=== PATIENT | male | born 1955 | race Caucasian/White ===

== ENCOUNTER 2021-02-13 20:49 | Emergency (ER) | payer MEDICARE ==
[2021-02-13] MEDS ORDERED: Lidocaine 1% (PF) 30 ML VIAL ONE (21:18)
[2021-02-13] MEDS ORDERED: Morphine 4 MG/ML VIAL ONE (21:52)
== END 2021-02-13 22:25 | disposition home or self-care (01) ==
LOC: ERS 20:49 → EDBD 20:49 → ERS 22:25
DX: L02.416 Cutaneous abscess of left lower limb (principal); I48.91 Unspecified atrial fibrillation; J44.9 Chronic obstructive pulmonary disease, unspecified; E78.5 Hyperlipidemia, unspecified; I10 Essential (primary) hypertension; F17.210 Nicotine dependence, cigarettes, uncomplicated; Z79.01 Long term (current) use of anticoagulants; Z79.899 Other long term (current) drug therapy
CPT/HCPCS: 10060; 96372; J2001; J2270

== ENCOUNTER 2023-04-17 09:07 | Inpatient (IN) | payer MEDICARE ==
[2023-04-17] MEDS ORDERED: Magnesium 2 GM/50 ML BAG (IN WATER) ONE (09:23)
[2023-04-17] MEDS ORDERED: methylPREDNISolone Sod Succ/PF 125 MG/2 ML VIAL ONE (09:24)
[2023-04-17] MEDS ORDERED: hydrOXYzine 25 MG TAB ONE (10:15)
[2023-04-17] MEDS ORDERED: Cefepime 2 GM VIAL ONE (10:16)
[2023-04-17] MEDS ORDERED: Vancomycin 1 GM/200 ML (FROZEN) BAG ONE (10:16)
[2023-04-17] MEDS ORDERED: Sodium Chloride 0.9% 100 ML ONE (10:17)
[2023-04-17 10:35] LABS: #Monocytes 0.6 thou/uL (0.11-0.59); #Neutrophils 7.4 thou/uL (1.40-6.50); %Basophils 0.5 % (0.0-1.0); %Eosinophils 0.2 % (0.0-10.0); %Lymphocytes 8.4 % (21.0-51.0); %Monocytes 6.3 % (0.0-10.0); %Neutrophils 84.1 % (42.0-75.0); Hematocrit 44.4 % (42.0-52.0); Hemoglobin 14.8 g/dL (14.0-18.0); Mean Corpuscular HGB CONC 33.3 g/dL (32.0-36.0); Mean Corpuscular Hemoglobin 35.7 pg (27.0-31.0); Platelet Count 266 10x3/uL (130-400); RBC Distribution Width 12.6 % (11.5-14.5); Red Blood Cell (RBC) Count 4.15 mill/uL (4.70-6.10); White Blood Cell (WBC) Count 8.8 10x3/uL (4.8-10.8)
[2023-04-17 10:52] LABS: ALT (SGPT) 18 U/L (8-55); AST (SGOT) 24 U/L (5-34); Alkaline Phosphatase 89 U/L (40-110); Anion Gap 15 mmol/L (10-20); BUN (Urea Nitrogen) 10 mg/dL (8.4-25.7); Bilirubin, Total 0.6 mg/dL (0.2-1.2); Calc. Creatinine Clearance 0 mL/min (70-130); Calcium 9.5 mg/dL (7.8-10.44); Carbon Dioxide 25 mmol/L (23-31); Chloride 104 mmol/L (98-107); Estimated GFR 89; Globulin 3.9 g/dL (2.4-3.5); Glucose 168 mg/dL (80-115); Lipase 16 U/L (8-78); Magnesium 3.2 mg/dL (1.6-2.6); Potassium 4.4 mmol/L (3.5-5.1); Protein, Total 7.9 g/dL (5.8-8.1); Sodium 140 mmol/L (136-145)
[2023-04-17 11:00] LABS: Troponin I 0.669 ng/mL (< 0.028)
[2023-04-17] MEDS ORDERED: Acetaminophen 325 MG TAB PO PRN (11:47)
[2023-04-17] MEDS ORDERED: Ondansetron ODT 4 MG TAB PO PRN (11:47)
[2023-04-17] MEDS ORDERED: Acetaminophen 650 MG Suppository PR PRN (11:47)
[2023-04-17] MEDS ORDERED: Ondansetron PF 4 MG/2 ML Vial IVP PRN (11:47)
[2023-04-17 11:53] LABS: Troponin I 0.901 ng/mL (< 0.028)
[2023-04-17] MEDS ORDERED: cefTRIAXone\\ROCEPHIN 1 GM in Sodium Chloride 0.9% 100 ML IVPB SCH (12:00)
[2023-04-17] MEDS ORDERED: Aspirin Chewable 81 MG TAB ONE (12:11)
[2023-04-17 13:21] LABS: Lactic Acid 1.9 mmol/L (0.5-2.2)
[2023-04-17] MEDS: Ipratropium/Albuterol 3 ML NEB NEB SCH ×3 (13:27→22:51)
[2023-04-17 13:43] LABS: SARS-CoV-2 NAA Rapid Test Not Detected (NotDetected)
[2023-04-17 14:14] VITALS: BMI 17.7
[2023-04-17] MEDS: Azithromycin 500 MG in Sodium Chloride 0.9% 250 ML 250 ML IVPB SCH (16:24)
[2023-04-17] MEDS: methylPREDNISolone Sod Succ 40 MG VIAL IVP SCH ×2 (18:28→23:04)
[2023-04-17 18:34] LABS: Troponin I 1.331 ng/mL (< 0.028)
[2023-04-17] MEDS: Budesonide 0.5 MG/2 ML NEB INH SCH (18:51)
[2023-04-17 19:24] LABS: Legionella Urinary Ag Negative (Negative); Strep pneumo Urine Ag NEGATIVE (NEGATIVE)
[2023-04-17] MEDS: Apixaban 5 MG TAB PO SCH (20:22)
[2023-04-17] MEDS: Atorvastatin Calcium 10 MG TAB PO SCH (20:22)
[2023-04-17] MEDS: Cefepime 2 GM in Sodium Chloride 0.9% 100 ML IVPB SCH (20:22)
[2023-04-17] MEDS: Metoprolol Tartrate 25 MG TAB PO SCH (20:22)
[2023-04-18] MEDS: Ipratropium/Albuterol 3 ML NEB NEB SCH ×6 (02:57→22:41)
[2023-04-18 04:08] LABS: #Monocytes 0.3 thou/uL (0.11-0.59); #Neutrophils 5.1 thou/uL (1.40-6.50); %Basophils 0.2 % (0.0-1.0); %Monocytes 5.3 % (0.0-10.0); %Neutrophils 86.8 % (42.0-75.0); Hematocrit 37.4 % (42.0-52.0); Hemoglobin 12.6 g/dL (14.0-18.0); Mean Corpuscular HGB CONC 33.7 g/dL (32.0-36.0); Mean Corpuscular Hemoglobin 35.7 pg (27.0-31.0); Mean Corpuscular Volume 105.9 fl (78.0-98.0); Mean Platelet Volume 8.9 fL (7.4-10.4); Platelet Count 222 10x3/uL (130-400); RBC Distribution Width 12.7 % (11.5-14.5); Red Blood Cell (RBC) Count 3.53 mill/uL (4.70-6.10); White Blood Cell (WBC) Count 5.9 10x3/uL (4.8-10.8)
[2023-04-18 04:29] LABS: Anion Gap 13 mmol/L (10-20); BUN (Urea Nitrogen) 16 mg/dL (8.4-25.7); Calc. Creatinine Clearance 73 mL/min (70-130); Calcium 8.8 mg/dL (7.8-10.44); Carbon Dioxide 25 mmol/L (23-31); Chloride 103 mmol/L (98-107); Estimated GFR 94; Glucose 151 mg/dL (80-115); Potassium 4.7 mmol/L (3.5-5.1); Sodium 136 mmol/L (136-145)
[2023-04-18] MEDS: methylPREDNISolone Sod Succ 40 MG VIAL IVP SCH ×4 (05:18→23:52)
[2023-04-18] MEDS: Budesonide 0.5 MG/2 ML NEB INH SCH ×2 (07:37→19:20)
[2023-04-18] MEDS ORDERED: predniSONE 20 MG TAB PO SCH (09:00)
[2023-04-18] MEDS: Apixaban 5 MG TAB PO SCH (09:10)
[2023-04-18] MEDS: Venlafaxine HCl XR 75 MG CAP PO SCH (09:10)
[2023-04-18] MEDS: Cefepime 2 GM in Sodium Chloride 0.9% 100 ML IVPB SCH ×2 (09:10→21:33)
[2023-04-18] MEDS: Metoprolol Tartrate 25 MG TAB PO SCH ×2 (09:28→21:34)
[2023-04-18] MEDS: Azithromycin 500 MG in Sodium Chloride 0.9% 250 ML 250 ML IVPB SCH (13:00)
[2023-04-18] MEDS ORDERED: Communication Order-Pharmacy FS ONE (15:52)
[2023-04-18] MEDS ORDERED: Furosemide 20 MG TAB PO SCH (16:00)
[2023-04-18 16:28] LABS: Hematocrit 38.9 % (42.0-52.0); Hemoglobin 13.1 g/dL (14.0-18.0); Platelet Count 226 10x3/uL (130-400)
[2023-04-18] MEDS: Mometasone Furoate 120 PUFF 220 MCG INH SCH (19:15)
[2023-04-18] MEDS: Atorvastatin Calcium 10 MG TAB PO SCH (21:34)
[2023-04-18] MEDS ORDERED: Digoxin 0.5 MG/2 ML AMP SLOW IVP SCH (21:45)
[2023-04-18] MEDS ORDERED: Sodium Chloride 0.9% 500 ML IV SCH (23:45)
[2023-04-19] MEDS: Ipratropium/Albuterol 3 ML NEB NEB SCH ×6 (03:02→21:47)
[2023-04-19] MEDS ORDERED: Metoprolol Tartrate 5 MG/5 ML VIAL IVP SCH (03:45)
[2023-04-19] MEDS ORDERED: hydrOXYzine 10 MG TAB PO SCH (03:45)
[2023-04-19 04:49] LABS: #Monocytes 0.6 thou/uL (0.11-0.59); #Neutrophils 10.9 thou/uL (1.40-6.50); %Basophils 0.2 % (0.0-1.0); %Lymphocytes 4.1 % (21.0-51.0); %Monocytes 4.8 % (0.0-10.0); %Neutrophils 90.2 % (42.0-75.0); Hematocrit 38.7 % (42.0-52.0); Hemoglobin 13.2 g/dL (14.0-18.0); Mean Corpuscular HGB CONC 34.1 g/dL (32.0-36.0); Mean Corpuscular Hemoglobin 35.5 pg (27.0-31.0); Platelet Count 214 10x3/uL (130-400); RBC Distribution Width 12.5 % (11.5-14.5); Red Blood Cell (RBC) Count 3.72 mill/uL (4.70-6.10); White Blood Cell (WBC) Count 12.1 10x3/uL (4.8-10.8)
[2023-04-19 05:27] LABS: Anion Gap 12 mmol/L (10-20); BUN (Urea Nitrogen) 23 mg/dL (8.4-25.7); Calc. Creatinine Clearance 85 mL/min (70-130); Calcium 8.3 mg/dL (7.8-10.44); Carbon Dioxide 25 mmol/L (23-31); Cardiac Risk 3.9 (Less than 4.5); Chloride 103 mmol/L (98-107); Cholesterol 154 mg/dl (< 200 Desired); Estimated GFR 98; Glucose 125 mg/dL (80-115); HDL Cholesterol 40 mg/dL (>60 Neg Risk); LDL Cholesterol, Calculated 94 mg/dL; Potassium 4.6 mmol/L (3.5-5.1); Sodium 135 mmol/L (136-145); Triglycerides 99 mg/dL (Less than 150)
[2023-04-19] MEDS: methylPREDNISolone Sod Succ 40 MG VIAL IVP SCH ×3 (05:57→17:19)
[2023-04-19] MEDS: Budesonide 0.5 MG/2 ML NEB INH SCH ×2 (06:56→18:35)
[2023-04-19] MEDS ORDERED: Communication Order-Pharmacy FS SCH (08:30)
[2023-04-19] MEDS ORDERED: Aspirin 325 mg Enteric Coated Tablet PO SCH (08:30)
[2023-04-19] MEDS ORDERED: Amiodarone 150 MG in Dextrose 5% in Water 100 ML IVPB SCH (08:30)
[2023-04-19] MEDS: Furosemide 20 MG TAB PO SCH (09:53)
[2023-04-19] MEDS: Venlafaxine HCl XR 75 MG CAP PO SCH (09:53)
[2023-04-19] MEDS: Amiodarone 450 MG in Dextrose 5% in Water 250 ML IVPB SCH ×2 (09:56→18:34)
[2023-04-19] MEDS: Cefepime 2 GM in Sodium Chloride 0.9% 100 ML IVPB SCH (10:04)
[2023-04-19] MEDS: Azithromycin 500 MG in Sodium Chloride 0.9% 250 ML 250 ML IVPB SCH (13:04)
[2023-04-19] MEDS: Mometasone Furoate 120 PUFF 220 MCG INH SCH (18:35)
[2023-04-19] MEDS: Atorvastatin Calcium 40 MG TAB PO SCH (20:40)
[2023-04-20] MEDS: Ipratropium/Albuterol 3 ML NEB NEB SCH ×6 (02:14→22:16)
[2023-04-20 04:23] LABS: #Monocytes 0.9 thou/uL (0.11-0.59); #Neutrophils 7.9 thou/uL (1.40-6.50); %Basophils 0.1 % (0.0-1.0); %Lymphocytes 9.9 % (21.0-51.0); %Monocytes 8.9 % (0.0-10.0); %Neutrophils 80.5 % (42.0-75.0); Hematocrit 39.8 % (42.0-52.0); Hemoglobin 13.3 g/dL (14.0-18.0); Mean Corpuscular HGB CONC 33.4 g/dL (32.0-36.0); Mean Corpuscular Hemoglobin 35.2 pg (27.0-31.0); Mean Corpuscular Volume 105.3 fl (78.0-98.0); Mean Platelet Volume 9.1 fL (7.4-10.4); Platelet Count 202 10x3/uL (130-400); RBC Distribution Width 12.7 % (11.5-14.5); Red Blood Cell (RBC) Count 3.78 mill/uL (4.70-6.10); White Blood Cell (WBC) Count 9.8 10x3/uL (4.8-10.8)
[2023-04-20 04:52] LABS: Anion Gap 13 mmol/L (10-20); BUN (Urea Nitrogen) 19 mg/dL (8.4-25.7); Calc. Creatinine Clearance 83 mL/min (70-130); Calcium 8.6 mg/dL (7.8-10.44); Carbon Dioxide 29 mmol/L (23-31); Chloride 99 mmol/L (98-107); Estimated GFR 97; Glucose 111 mg/dL (80-115); Potassium 4.6 mmol/L (3.5-5.1); Sodium 136 mmol/L (136-145)
[2023-04-20] MEDS: LevoFLOXacin 500 MG TAB PO SCH (05:57)
[2023-04-20] MEDS: Venlafaxine HCl XR 75 MG CAP PO SCH (05:57)
[2023-04-20] MEDS ORDERED: Sodium Chloride 0.9% 1,000 ML IV SCH ×2 (06:00→08:15)
[2023-04-20] MEDS ORDERED: Heparin 10,000 UNITS/ 10 ML VIAL ONE (06:26)
[2023-04-20] MEDS ORDERED: fentaNYL 50 mcg/mL 1 mL Vial ONE (06:26)
[2023-04-20] MEDS ORDERED: Midazolam HCl 2 mg/2 ml Vial ONE (06:26)
[2023-04-20] MEDS ORDERED: Nitroglycerin 50 MG/250 ML BOT 0 ML ONE (06:26)
[2023-04-20] MEDS ORDERED: Lidocaine 1% (PF) 30 ML VIAL ONE (06:26)
[2023-04-20] MEDS: Aspirin 81 mg Enteric Coated Tablet PO SCH (06:28)
[2023-04-20] MEDS: predniSONE 20 MG TAB PO SCH (06:28)
[2023-04-20] MEDS: Budesonide 0.5 MG/2 ML NEB INH SCH ×2 (07:12→18:47)
[2023-04-20] MEDS ORDERED: Digoxin 0.5 MG/2 ML AMP ONE (07:33)
[2023-04-20] MEDS ORDERED: Protamine Sulfate 50 MG/5 ML VIAL ONE (07:58)
[2023-04-20] MEDS ORDERED: Digoxin 0.5 MG/2 ML AMP SLOW IVP SCH ×3 (08:30→20:30)
[2023-04-20] MEDS ORDERED: Iopamidol 370 76% 100 ML VIAL ONE (09:18)
[2023-04-20] MEDS ORDERED: Acetaminophen/Codeine 30-300mg Tablet PO PRN ×2 (10:09)
[2023-04-20] MEDS ORDERED: Sodium Chloride 0.9% 200 ML IV PRN (10:09)
[2023-04-20] MEDS ORDERED: Nitroglycerin 0.4 MG TAB (25 Tab Bottle) SL PRN (10:09)
[2023-04-20] MEDS: Amiodarone 450 MG in Dextrose 5% in Water 250 ML IVPB SCH (10:11)
[2023-04-20] MEDS: Furosemide 20 MG TAB PO SCH (10:15)
[2023-04-20] MEDS ORDERED: Furosemide 40 MG/4 ML VIAL SLOW IVP SCH (12:00)
[2023-04-20] MEDS: Carvedilol 3.125 MG TAB PO SCH (17:23)
[2023-04-20] MEDS: Mometasone Furoate 120 PUFF 220 MCG INH SCH (18:56)
[2023-04-20] MEDS: Atorvastatin Calcium 40 MG TAB PO SCH (21:29)
[2023-04-21] MEDS ORDERED: Metoprolol Tartrate 5 MG/5 ML VIAL IVP SCH ×2 (00:15→07:15)
[2023-04-21] MEDS: Amiodarone 450 MG in Dextrose 5% in Water 250 ML IVPB SCH ×2 (01:11→14:16)
[2023-04-21] MEDS: Ipratropium/Albuterol 3 ML NEB NEB SCH ×6 (02:05→21:45)
[2023-04-21 04:55] LABS: Hematocrit 46.2 % (42.0-52.0); Hemoglobin 14.9 g/dL (14.0-18.0); Platelet Count 186 10x3/uL (130-400)
[2023-04-21] MEDS: LevoFLOXacin 500 MG TAB PO SCH (05:50)
[2023-04-21] MEDS: Budesonide 0.5 MG/2 ML NEB INH SCH (07:05)
[2023-04-21] MEDS: Digoxin 0.125 MG TAB PO SCH (09:00)
[2023-04-21] MEDS: Aspirin 81 mg Enteric Coated Tablet PO SCH (09:00)
[2023-04-21] MEDS: Carvedilol 3.125 MG TAB PO SCH ×3 (09:00→18:55)
[2023-04-21] MEDS: predniSONE 20 MG TAB PO SCH (09:00)
[2023-04-21] MEDS: Venlafaxine HCl XR 75 MG CAP PO SCH (09:03)
[2023-04-21] MEDS: Furosemide 20 MG TAB PO SCH (09:04)
[2023-04-21] MEDS: Empagliflozin 10 MG TAB PO SCH (09:04)
[2023-04-21] MEDS: Apixaban 5 MG TAB PO SCH (20:51)
[2023-04-21] MEDS: Atorvastatin Calcium 40 MG TAB PO SCH (20:51)
[2023-04-21] MEDS: Melatonin 3 MG TAB PO PRN (22:49)
[2023-04-22] MEDS: Ipratropium/Albuterol 3 ML NEB NEB SCH ×6 (02:02→22:06)
[2023-04-22 05:58] LABS: #Eosinphils 0.1 thou/uL (0.0-0.7); #Neutrophils 7.5 thou/uL (1.40-6.50); %Basophils 0.2 % (0.0-1.0); %Eosinophils 0.6 % (0.0-10.0); %Lymphocytes 12.6 % (21.0-51.0); %Monocytes 10.4 % (0.0-10.0); %Neutrophils 75.8 % (42.0-75.0); Hemoglobin 16.1 g/dL (14.0-18.0); Mean Corpuscular HGB CONC 34.3 g/dL (32.0-36.0); Mean Corpuscular Hemoglobin 35.5 pg (27.0-31.0); Mean Corpuscular Volume 103.8 fl (78.0-98.0); Mean Platelet Volume 9.5 fL (7.4-10.4); Platelet Count 185 10x3/uL (130-400); Red Blood Cell (RBC) Count 4.53 mill/uL (4.70-6.10); White Blood Cell (WBC) Count 9.8 10x3/uL (4.8-10.8)
[2023-04-22] MEDS: Amiodarone 450 MG in Dextrose 5% in Water 250 ML IVPB SCH ×2 (06:01→21:10)
[2023-04-22] MEDS: LevoFLOXacin 500 MG TAB PO SCH (06:01)
[2023-04-22 06:24] LABS: Anion Gap 15 mmol/L (10-20); BUN (Urea Nitrogen) 26 mg/dL (8.4-25.7); Calc. Creatinine Clearance 79 mL/min (70-130); Carbon Dioxide 24 mmol/L (23-31); Chloride 97 mmol/L (98-107); Potassium 4.8 mmol/L (3.5-5.1); Sodium 131 mmol/L (136-145)
[2023-04-22 06:25] LABS: Calcium 8.6 mg/dL (7.8-10.44); Estimated GFR 99; Glucose 85 mg/dL (80-115)
[2023-04-22 06:26] LABS: Digoxin 1.15 ng/mL (0.8-2.0)
[2023-04-22] MEDS ORDERED: Temazepam 15 MG CAP PO PRN (06:55)
[2023-04-22] MEDS: Empagliflozin 10 MG TAB PO SCH (09:08)
[2023-04-22] MEDS: Venlafaxine HCl XR 75 MG CAP PO SCH (09:08)
[2023-04-22] MEDS: Aspirin 81 mg Enteric Coated Tablet PO SCH (09:08)
[2023-04-22] MEDS: Digoxin 0.125 MG TAB PO SCH (09:09)
[2023-04-22] MEDS: Apixaban 5 MG TAB PO SCH ×2 (09:09→20:28)
[2023-04-22] MEDS: Furosemide 20 MG TAB PO SCH (09:09)
[2023-04-22] MEDS: Carvedilol 3.125 MG TAB PO SCH ×2 (09:09→18:18)
[2023-04-22] MEDS: predniSONE 20 MG TAB PO SCH (09:09)
[2023-04-22] MEDS: Atorvastatin Calcium 40 MG TAB PO SCH (20:28)
[2023-04-22] MEDS: Melatonin 3 MG TAB PO PRN (20:28)
[2023-04-23] MEDS: Ipratropium/Albuterol 3 ML NEB NEB SCH ×3 (02:20→10:42)
[2023-04-23 04:38] LABS: #Neutrophils 6.2 thou/uL (1.40-6.50); %Basophils 0.4 % (0.0-1.0); %Eosinophils 0.5 % (0.0-10.0); %Lymphocytes 14.4 % (21.0-51.0); %Monocytes 11.5 % (0.0-10.0); %Neutrophils 72.6 % (42.0-75.0); Hematocrit 41.4 % (42.0-52.0); Hemoglobin 14.6 g/dL (14.0-18.0); Mean Corpuscular HGB CONC 35.3 g/dL (32.0-36.0); Mean Platelet Volume 9.6 fL (7.4-10.4); Platelet Count 188 10x3/uL (130-400); RBC Distribution Width 11.8 % (11.5-14.5); Red Blood Cell (RBC) Count 4.06 mill/uL (4.70-6.10); White Blood Cell (WBC) Count 8.5 10x3/uL (4.8-10.8)
[2023-04-23 05:02] LABS: Anion Gap 11 mmol/L (10-20); BUN (Urea Nitrogen) 29 mg/dL (8.4-25.7); Calc. Creatinine Clearance 79 mL/min (70-130); Calcium 8.6 mg/dL (7.8-10.44); Carbon Dioxide 28 mmol/L (23-31); Chloride 96 mmol/L (98-107); Estimated GFR 99; Glucose 84 mg/dL (80-115); Potassium 4.2 mmol/L (3.5-5.1); Sodium 131 mmol/L (136-145)
[2023-04-23] MEDS: LevoFLOXacin 500 MG TAB PO SCH (06:04)
[2023-04-23] MEDS ORDERED: Amiodarone 200 MG TAB PO SCH (09:00)
[2023-04-23] MEDS: Apixaban 5 MG TAB PO SCH (09:09)
[2023-04-23] MEDS: Venlafaxine HCl XR 75 MG CAP PO SCH (09:09)
[2023-04-23] MEDS: Furosemide 20 MG TAB PO SCH (09:09)
[2023-04-23] MEDS: predniSONE 20 MG TAB PO SCH (09:09)
[2023-04-23] MEDS: Empagliflozin 10 MG TAB PO SCH (09:09)
[2023-04-23] MEDS: Carvedilol 3.125 MG TAB PO SCH (09:09)
[2023-04-23] MEDS: Aspirin 81 mg Enteric Coated Tablet PO SCH (09:09)
[2023-04-23 11:50] VITALS: BP 124/70; TEMP 97.8
[2023-05-07] MEDS ORDERED: Amiodarone 200 MG TAB PO SCH (09:00)
[2023-05-21] MEDS ORDERED: Amiodarone 200 MG TAB PO SCH (09:00)
== END 2023-04-23 13:37 | disposition home or self-care (01) | DRG 193 ==
LOC: ERS 09:07 → IMCU/EMU 11:36 → 2NO 04-18 20:08
PROVIDERS: ADMIT Internal Medicine; ATTEND Internal Medicine
PROC: 4A023N7 Measurement of Cardiac Sampling and Pressure, Left Heart, Percutaneous Approach (ICD-10-PCS; principal; 2023-04-20)
PROC: B2151ZZ Fluoroscopy of Left Heart using Low Osmolar Contrast (ICD-10-PCS; 2023-04-20)
PROC: B2111ZZ Fluoroscopy of Multiple Coronary Arteries using Low Osmolar Contrast (ICD-10-PCS; 2023-04-20)
DX: J12.89 Other viral pneumonia (principal); E43 Unspecified severe protein-calorie malnutrition; I21.A1 Myocardial infarction type 2; J96.21 Acute and chronic respiratory failure with hypoxia; J44.1 Chronic obstructive pulmonary disease with (acute) exacerbation; I42.0 Dilated cardiomyopathy; J44.0 Chronic obstructive pulmonary disease with (acute) lower respiratory infection; I50.20 Unspecified systolic (congestive) heart failure; Z88.0 Allergy status to penicillin; E78.5 Hyperlipidemia, unspecified; Z98.890 Other specified postprocedural states; F17.210 Nicotine dependence, cigarettes, uncomplicated; Z79.01 Long term (current) use of anticoagulants; I71.40 Abdominal aortic aneurysm, without rupture, unspecified; Z71.6 Tobacco abuse counseling; I71.20 Thoracic aortic aneurysm, without rupture, unspecified; Z11.52 Encounter for screening for COVID-19; I48.0 Paroxysmal atrial fibrillation; I11.0 Hypertensive heart disease with heart failure; I25.10 Atherosclerotic heart disease of native coronary artery without angina pectoris
CPT/HCPCS: 36415; 36416; 71045; 71250; 80048; 80053; 80061; 80162; 83605; 83690; 83735; 83880; 84443; 84484; 85014; 85018; 85025; 85049; 85347; 87040; 87449; 87633; 87798; 87899; 93005; 93010; 93306; 93458; 94640; 96365; 96367; 96375; 99152; 99153; C1769; J0282; J0456; J0692; J1160; J1644; J1650; J1940; J2001; J2250; J2720; J2920; J2930; J3010; J3370-JW; J3475; J3490; J7030; J7050; J7070; J7512; J7620; J7626; Q0162; Q9967; U0002